=== PATIENT | male | born 1940 | race Caucasian/White ===

== ENCOUNTER 2018-10-24 18:57 | Inpatient (IN) ==
[2018-10-24] MEDS: Sod Chloride 0.9% Inj 1,000 ML IV.CONT SCH (23:50)
--- NOTE | 2018-10-24 23:53 | P.HPIM ---
History of Present Illness Service: [facility] Primary Care Physician: Jimmy Stevenson Chief Complaint: Abdominal pain History of Present Illness: 78 y/o male with no medical history presented to the ER with complaints of abdominal pain. He states the pain began after eating dinner in his epigastric area, 7/10, intermediate, with no radiation, but with associated nausea and dry heaving. He states the pain medication has helped and decreased his pain to 4/10. He denies any chest pain, sob, fever, or chills. Inpatient Certification Inpatient Certification: I certify that the inpatient services were ordered in accordance with Medicare regulations governing the order. This includes certification that hospital inpatient services are reasonable and necessary and in the case of services not specified as inpatient-only under 42 CFR 419.22(n), that they are appropriately provided as inpatient services in accordance to with the 2-midnight benchmark under 43 CFR 412.3(e) Review of Systems Review of Systems: all other systems reviewed are negative PMFSH History History Provided By: Patient Medical History Medical History Frequent UTI (Acute) History of colon cancer (Acute) Surgical History Surgical History History of bowel resection (Acute) History of right shoulder replacement (Acute) Hx of bladder repair surgery (Acute) Family History Family History Sister Breast cancer Throat cancer Social History Social History Substance History: No History of Abuse Smoking Status: Former smoker How Often Do You Have a Drink Containing Alcohol: Never Medications and Allergies Allergies Allergy/AdvReac Type Severity Reaction Status Date / Time No Known Allergies Allergy Verified 10/24/18 19:13 Home Medications Medication Instructions Recorded Confirmed Type trazodone 50 mg PO HS 10/24/18 10/24/18 History Physical Exam Vital signs: GENERAL: well nourished patient in no distress SKIN: Warm and dry. no lesions EYES: No scleral icterus. No injection or drainage. NECK: Supple, trachea midline. No JVD or lymphadenopathy. CARDIOVASCULAR: Regular rate and rhythm without murmurs, gallops, or rubs. RESPIRATORY: Breath sounds equal bilaterally. No accessory muscle use. GASTROINTESTINAL: Abdomen soft, epigastric tenderness, nondistended. NGT in place MUSCULOSKELETAL: No cyanosis, or edema. Caprini VTE Risk Assessment Caprini VTE Risk Assessment: No/Low Risk (score <= 1) Caprini Risk Assessment Model: Point Value = 1 Point Value = 2 Point Value = 3 Point Value = 5 Age 41-60 Minor surgery BMI > 25 kg/m2 Swollen legs Varicose veins or History of unexplained or recurrent spontaneous Oral contraceptives or hormone replacement Sepsis (< 1 month) Serious lung disease, including pneumonia (< 1 month) Abnormal pulmonary function Acute myocardial infarction Congestive heart failure (< 1 month) History of inflammatory bowel disease Medical patient at bed rest Age 61-74 Arthroscopic surgery Major open surgery (> 45 min) Laparoscopic surgery (> 45 min) Malignancy Confined to bed (> 72 hours) Immobilizing plaster cast Central venous access Age >= 75 History of VTE Family history of VTE Factor V Leiden Prothrombin [id number] Lupus anticoagulant Anticardiolipin antibodies Elevated serum homocysteine Heparin-induced thrombocytopenia Other congenital or acquired thrombophilia Stroke (< 1 month) Elective arthroplasty Hip, pelvis, or leg fracture Acute spinal cord injury (< 1 month) Prophylaxis Regimen: Total Risk Factor Score Risk Level Prophylaxis Regimen 0-1 Low Early ambulation 2 Moderate Order ONE of the following: *Sequential Compression Device (SCD) *Heparin 5000 units SQ BID 3-4 Higher Order ONE of the following medications: *Heparin 5000 units SQ TID *Enoxaparin/Lovenox 40 mg SQ daily (WT < 150 kg, CrCl > 30 mL/min) *Enoxaparin/Lovenox 30 mg SQ daily (WT < 150 kg, CrCl > 10-29 mL/min) *Enoxaparin/Lovenox 30 mg SQ BID (WT < 150 kg, CrCl > 30 mL/min) AND/OR *Sequential Compression Device (SCD) 5 or more Highest Order ONE of the following medications: *Heparin 5000 units SQ TID (Preferred with Epidurals) *Enoxaparin/Lovenox 40 mg SQ daily (WT < 150 kg, CrCl > 30 mL/min) *Enoxaparin/Lovenox 30 mg SQ daily (WT < 150 kg, CrCl > 10-29 mL/min) *Enoxaparin/Lovenox 30 mg SQ BID (WT < 150 kg, CrCl > 30 mL/min) AND *Sequential Compression Device (SCD) Assessment and Plan Plan 78 y/o male with no medical history presented to the ER with complaints of abdominal pain. Partial SBO with leukocytosis Abdominal CT reviewed and shows Postsurgical features in the retroperitoneum and left paracolic gutter with multiple loops of apparently adherent slightly dilated fluid-filled loops o fsmall bowel in the anterior left abdomen -IVF -Consult to General surgery -Pain management with IV morphine -IV antibiotics zosyn UTI UA shows +nitrate, large leukocyte esterase, moderate clumps -Cont IVF as above -Culture pending Acute kidney injury, creatine 1.4, unknown baseline, likely due to dehydration -Cont IVF -Trend creatine -avoid nephrotoxins DVT prophylaxis: SCDs
[2018-10-24] MEDS ORDERED: Acetaminophen 325 MG Tablet PO PRN (23:56)
[2018-10-25] MEDS: Morphine Sulfate Inj 2 MG/ML Vial IV.PUSH PRN ×5 (02:08→18:10)
[2018-10-25] MEDS: Piperacil/Tazo 3.375 GM Premix 3.375 GM/50 ML PIGGYBACK IV.SIG SCH ×4 (03:53→21:15)
[2018-10-25 07:07] LABS: Baso # (Auto) 0.1 th/mm3 (0.0-0.2); Baso % (Auto) 0.4 % (0.0-2.0); Eos % (Auto) 0.1 % (0.0-4.0); Hematocrit 41.8 % (39.0-51.0); Hemoglobin 13.9 gm/dL (13.0-17.0); Lymph # (Auto) 1.4 th/mm3 (1.0-4.8); Lymph % (Auto) 10.2 % (9.0-44.0); Mean Corpuscular HGB Conc 33.3 % (32.0-36.0); Mean Corpuscular Hemoglobin 28.1 pg (27.0-34.0); Mean Corpuscular Volume 84.5 fL (80.0-100.0); Mean Platelet Volume 9.1 fL (7.0-11.0); Mono # (Auto) 1.4 th/mm3 (0.0-0.9); Mono % (Auto) 10.4 % (0.0-8.0); Neut # (Auto) 10.8 th/mm3 (1.8-7.7); Neut % (Auto) 78.9 % (16.0-70.0); Platelet Count 225 th/mm3 (150-450); Red Blood Count 4.95 mil/mm3 (4.50-5.90); Red Cell Distribution Width 15.1 % (11.6-17.2); White Blood Count 13.7 th/mm3 (4.0-11.0)
[2018-10-25 07:31] LABS: Carbon Dioxide 25.3 meq/L (21.0-32.0); Potassium 4.5 meq/L (3.5-5.1)
[2018-10-25] MEDS: Sod Chloride 0.9% Inj 1,000 ML IV.CONT SCH (10:06)
--- NOTE | 2018-10-25 11:15 | P.CONGS ---
[facility] Gen Surgery Consult Note Consult date: 10/25/18 Reason for consult: abdominal pain (With nausea and minimal emesis) Narrative: The patient presented with relative acute onset of mid abdominal pain sharp and crampy in nature associated with nausea and minimal emesis. He had primarily dry heaves. He went to the emergency department for evaluation and was found to have on CT scan mildly dilated loops of small bowel in the left mid abdomen with decompressed distal loops of small bowel. He was admitted with potential partial small bowel obstruction and surgical consultation was requested. The patient has had prior abdominal surgeries with a colon resection for colon cancer in 1989. [place]. He is a partial year resident in [place], partial year resident in [place]. More recently he underwent a uro- lift procedure for bladder outlet obstruction due to benign prostatic hypertrophy. This is improved his urinary flow. His indicates that he has over the last 2-2-1/2 years had recurrent urinary tract infections. She indicates that they were just told that he has another urinary tract infection and would be put on antibiotics. He had a normal bowel movement yesterday. He has a nasogastric tube in place which is only about 100 cc of output. Review of Systems The patient denies fevers chills. He has no visual problems. He has some hearing deficit. He denies sinus or swallowing difficulties. He has no history of asthma bronchitis pneumonia or COPD. He denies history of chest pain heart attack or irregular heartbeat or heart murmur. He has no history of gastroesophageal reflux disease, chronic diarrhea or constipation. He denies blood in the urine or stool. He has been told he has a large kidney cyst, his indicates that is been present for years. He has benign prostatic hypertrophy and is undergone uro-lift procedure. He has had 2-2-1/2-year history of recurrent urinary tract infections. He denies arthritis. He denies history of phlebitis or blood clots or need for blood thinning medications. He has no history of strokes or seizures. He denies history of diabetes or thyroid gland problems. [facility] - History History Provided By: Patient (The patient denies tobacco or alcohol abuse. He denies HIV or hepatitis risk factors. 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 Family history significant for multiple cancers including breast and lung cancer. There is also a history of heart disease. There is a history of tobacco abuse disorder.) - Medical History Medical History: Medical History (Last Reviewed 10/25/18 @ 01:31 by Kaitlyn Sue RN) Frequent UTI History of colon cancer - Surgical History Surgical History: Surgical History (Last Reviewed 10/25/18 @ 01:31 by Kaitlyn Sue RN) History of bowel resection History of right shoulder replacement Hx of bladder repair surgery - Family History Family History: Family History (Last Reviewed 10/25/18 @ 01:02 by HERBERT Kelley) Sister Breast cancer Throat cancer - Tobacco History Second Hand Smoke Exposure: No Smoking Status: Never smoker - Alcohol History How Often Do You Have a Drink Containing Alcohol: Monthly or less - Substance Use History Substance History: No History of Abuse - Immunization History Tetanus Immunization: <5 Years Hx Influenza Vaccine This Season: Yes Medications and Allergies Active Medications: Active Medications Acetaminophen (Tylenol) 650 mg PO Q4H PRN PRN Reason: Temp > 100.4 Sodium Chloride (Ns Inj) 1,000 mls @ 100 mls/hr IV.CONT .Q10H [facility] Last Admin: 10/25/18 10:06 Dose: 100 mls/hr Piperacillin/Tazobactam/Dextrose (Zosyn 3.375 Gm Premix) 3.375 gm in 50 mls @ 100 mls/hr IV.SIG Q6H [facility] Last Admin: 10/25/18 10:07 Dose: 100 mls/hr Morphine Sulfate (Morphine Inj) 2 mg IV.PUSH Q3H PRN PRN Reason: PAIN SCALE 1 TO 10 Last Admin: 10/25/18 10:46 Dose: 2 mg Ondansetron HCl (Zofran Inj) 4 mg IV.PUSH Q6H PRN PRN Reason: NAUSEA OR VOMITING Last Admin: 10/25/18 07:24 Dose: 4 mg Sodium Chloride (Ns Flush) 2 ml IV.FLUSH PRN PRN PRN Reason: FLUSH AFTER USING IV ACCESS Sodium Chloride (Ns Flush) 2 ml IV.FLUSH BID [facility] Last Admin: 10/25/18 10:05 Dose: 2 ml Trazodone HCl (Desyrel) 50 mg PO HS [facility] Allergies Allergy/AdvReac Type Severity Reaction Status Date / Time No Known Allergies Allergy Verified 10/24/18 19:13 Home Medications Medication Instructions Recorded Confirmed Type trazodone 50 mg PO HS 10/24/18 10/24/18 History Exam Vital signs: Vital Signs 10/24/18 23:22 10/25/18 02:09 10/25/18 05:03 Temperature 97.3 F L Pulse Rate 84 Respiratory Rate 17 17 18 Blood Pressure 145/70 H Pulse Oximetry 95 10/25/18 07:25 10/25/18 08:00 Temperature 98.7 F Pulse Rate 77 Respiratory Rate 18 17 Blood Pressure 136/65 Pulse Oximetry 98 Intake & Output 10/24/18 10/25/18 10/25/18 18:59 06:59 18:59 Intake Total 50 / 50 1000 / 1000 Output Total 10 Balance 50 / 50 990 / 990 Intake: IV 50 / 50 1000 / 1000 NS Inj 1,000 ML @ 100 mls/hr IV 1000 / 1000 .CONT .Q10H [facility] Rx#:[id number] Zosyn 3.375 GM Premix 3.375 gm 50 / 50 In 50 ml @ 100 mls/hr IV.SIG Q6H [facility] Rx#:[id number] Output: Gastric Drainage Left Nare Nasogastric Tube Other: Date of Last Bowel Movement 10/24/18 10/24/18 Narrative: Patient is awake alert and oriented. He is accompanied by his at his bedside. He is pleasant and cooperative with the exam. HEENT shows a normocephalic atraumatic head. His pupils are 2 round and sluggishly reactive to light. There is some scarring over the right eye. There is no scleral icterus. He has a nasogastric tube in the left nares again not draining much. His oropharynx is clear without mucosal lesions. He has good dentition. His neck is supple without adenopathy. He has a midline trachea. He has no jugular venous distention or carotid bruits. He has no palpable thyromegaly or cervical lymphadenopathy. His lung sounds are clear to auscultation anteriorly bilaterally. His heart sounds are regular without obvious murmur rub or gallop. His abdomen is soft and nondistended and nontender. He has active bowel sounds. There is a healed midline incision starting about 4-5 cm above the umbilicus and down the inferior midline. There is no obvious hernia. There is no rebound or guarding. He has no obvious hernia. His extremities are nonedematous. He has equal bilateral radial and dorsalis pedis pulses. Neurologically he is awake alert oriented he has equal bilateral precipitation equipment tender strength and no gross motor or sensory deficit. Is important to note the patient additionally has had surgery to his right shoulder with right shoulder placement and there is a well-healed scar in the anterior right shoulder. He is also had a uro-lift procedure for bladder outlet obstruction due to benign prostatic hypertrophy. He also had a traumatic injury to his scrotum and testicles following a ladder fall in 2017 where it sounds like he had decompression of an infected hematoma. He also apparently had a right inguinal hernia repair although I cannot see a scar in the right groin. Results - Labs 10/25/18 06:45 10/25/18 06:45 Laboratory Results - last 24 hr 10/25/18 10/25/18 06:45 06:45 WBC 13.7 H RBC 4.95 Hgb 13.9 Hct 41.8 MCV 84.5 MCH 28.1 MCHC 33.3 RDW 15.1 Plt Count 225 MPV 9.1 Neut % (Auto) 78.9 H Lymph % (Auto) 10.2 [place] % (Auto) 10.4 H Eos % (Auto) 0.1 Baso % (Auto) 0.4 Neut # (Auto) 10.8 H Lymph # (Auto) 1.4 [place] # (Auto) 1.4 H Eos # (Auto) 0.0 Baso # (Auto) 0.1 WBC Differential . Differential Comment Auto diff final Sodium 145 Potassium 4.5 Chloride 112 H Carbon Dioxide 25.3 Anion Gap 8 BUN 20 H Creatinine 1.31 H Estimated GFR 53 L Random Glucose 116 H Calcium 9.0 D - Imaging CT scan - abdomen: report reviewed, image reviewed CT scan - pelvis: report reviewed, image reviewed Assessment and Plan - Assessment (1) Partial obstruction of small intestine Code(s): K56.600 - Partial intestinal obstruction, unspecified as to cause Status: Acute (2) Urinary tract infection Code(s): N39.0 - Urinary tract infection, site not specified Status: Acute - Plan I have recommended upper GI small bowel follow-through to evaluate for narrowing kinking or small bowel obstruction. The patient may have a focal ileus related to urinary tract infection. Antibiotic therapy should be ordered by the primary team. We will follow-up after contrast study. I discussed with the patient and his surgical intervention for bowel obstruction if his symptoms do not resolve or the contrast study points to a focal area that would benefit from either laparoscopic or open adhesio lysis, possible small bowel resection. Expressed understanding and were grateful for my explanation and evaluation. Discussed Condition With: Patient and
--- NOTE | 2018-10-25 11:25 | P.PN ---
Subjective Interval history: Follow-up visit for partial small bowel obstruction and UTI. Is seen and examined sitting up in bed with at bedside. Minimal output from NG tube reported by nurse, patient denies any nausea or vomiting, ongoing abdominal pain , denies dysuria or hematuria. Denies any fevers, chills, cough, shortness of breath or chest pain. Physical Exam Vital signs: Vital Signs 10/24/18 23:22 10/25/18 02:09 10/25/18 05:03 Temperature 97.3 F L Pulse Rate 84 Respiratory Rate 17 17 18 Blood Pressure 145/70 H Pulse Oximetry 95 10/25/18 07:25 10/25/18 08:00 Temperature 98.7 F Pulse Rate 77 Respiratory Rate 18 17 Blood Pressure 136/65 Pulse Oximetry 98 Intake & Output 10/24/18 10/25/18 10/25/18 18:59 06:59 18:59 Intake Total 50 / 50 1000 / 1000 Output Total 10 / 10 Balance 50 / 50 990 / 990 Intake: IV 50 / 50 1000 / 1000 NS Inj 1,000 ML @ 100 mls/hr IV 1000 / 1000 .CONT .Q10H [facility] Rx#:[id number] Zosyn 3.375 GM Premix 3.375 gm 50 / 50 In 50 ml @ 100 mls/hr IV.SIG Q6H [facility] Rx#:[id number] Output: Gastric Drainage Left Nare Nasogastric Tube Other: Date of Last Bowel Movement 10/24/18 10/24/18 Narrative: GENERAL: Well-nourished, well-developed male sitting up in bed in no acute distress. SKIN: Warm and dry. Right shoulder surgical scar, abdominal surgical scar. HEAD: Atraumatic. Normocephalic. EYES: Pupils equal and round. No scleral icterus. No injection or drainage. ENT: Left nare NG tube. Mucous membranes pink and moist. NECK: Trachea midline. CARDIOVASCULAR: Regular rate and rhythm. RESPIRATORY: No accessory muscle use. Clear to auscultation. Breath sounds equal bilaterally. GASTROINTESTINAL: Abdomen soft, mild diffuse tenderness, nondistended. + Bowel sounds MUSCULOSKELETAL: Extremities without clubbing, cyanosis, or edema. No obvious deformities. NEUROLOGICAL: Awake, alert, oriented x3. No obvious cranial nerve deficits. Motor grossly within normal limits. Normal speech. PSYCHIATRIC: Appropriate mood and affect; insight and judgment normal. Results - Labs CBC & Chem 7: 10/25/18 06:45 10/25/18 06:45 Laboratory Results - last 24 hr 10/25/18 10/25/18 06:45 06:45 WBC 13.7 H RBC 4.95 Hgb 13.9 Hct 41.8 MCV 84.5 MCH 28.1 MCHC 33.3 RDW 15.1 Plt Count 225 MPV 9.1 Neut % (Auto) 78.9 H Lymph % (Auto) 10.2 [place] % (Auto) 10.4 H Eos % (Auto) 0.1 Baso % (Auto) 0.4 Neut # (Auto) 10.8 H Lymph # (Auto) 1.4 [place] # (Auto) 1.4 H Eos # (Auto) 0.0 Baso # (Auto) 0.1 WBC Differential . Differential Comment Auto diff final Sodium 145 Potassium 4.5 Chloride 112 H Carbon Dioxide 25.3 Anion Gap 8 BUN 20 H Creatinine 1.31 H Estimated GFR 53 L Random Glucose 116 H Calcium 9.0 D Assessment and Plan - Plan 78 y/o male with no medical history presented to the ER with complaints of abdominal pain. Partial SBO with leukocytosis Abdominal CT reviewed and shows Postsurgical features in the retroperitoneum and left paracolic gutter with multiple loops of apparently adherent slightly dilated fluid-filled loops o fsmall bowel in the anterior left abdomen -Continue n.p.o., NG tube to suction, IVF for hydration -General surgery consult, appreciate recommendations. Plans for upper GI with small bowel series. -Pain management with IV morphine -IV antibiotics zosyn UTI UA shows +nitrate, large leukocyte esterase, moderate clumps -Urine culture collected in deltoid in the ED still pending. Continue IV Zosyn for the moment. Acute kidney injury, creatine 1.4, unknown baseline, likely due to dehydration -Slight improvement in creatinine, continue IV fluids, continue to monitor renal function. -avoid nephrotoxins DVT prophylaxis: SCDs Discussed Condition With: Discussed with patient, , RN.
[2018-10-25] MEDS: traZODone 50 MG Tablet PO SCH (20:57)
--- NOTE | 2018-10-25 21:26 | FL ---
EXAM DATE: 10/25/2018 5:08 PM EST AGE/SEX: 78 years / Male INDICATIONS: Possible obstruction. CLINICAL DATA: This is the patient's subsequent encounter. Patient reports that signs and symptoms h ave been present for 2 days and indicates a pain score of 0/10. MEDICAL/SURGICAL HISTORY: None. . Bowel resection, prostate surgery, right shoulder replacement . COMPARISON: [facility], CT ABDOMEN & PELVIS W/O CONTRAST, 10/24/2018. . FLUORO TIME: 0.8 minutes. IMAGE COUNT: 9 RADIATION DOSE: 2221.8 DAP FINDINGS: Gastrografin upper GI and small bowel follow-through were performed through the indwelling nasogastri c tube. Initial branch service associate film demonstrates a nonspecific bowel gas pattern. Surgical clips are noted thr oughout the pelvis and left abdomen. Degenerative changes and scoliosis of the thoracolumbar spine ar e noted Gastrografin passes freely through the stomach into the small intestine in appropriate period of time. No gastric outlet obstruction is noted. The jejunal loops are very minimally prominent but no definite mechanical obstruction is confirmed. There is opacification of the entire small intestine at 4 hours. At 8 hours, contrast opacifies the colon and has completely transited the small intestin e. The findings are suggestive of mild small bowel ileus in the region of the jejunum or resolved par tial small bowel obstruction. CONCLUSION: 1. Very minimally prominent jejunal loops without definite mechanical obstruction confirmed. The fin dings are suggestive of mild small bowel ileus in the region of the jejunum or resolved partial small bowel obstruction. 2. Degenerative changes and scoliosis of the thoracolumbar spine. Electronically signed by: Daniel Corbin MD Board Certified Radiologist 10/25/2018 9:24 PM EST
[2018-10-26] MEDS: Sod Chloride 0.9% Inj 1,000 ML IV.CONT SCH ×3 (00:05→15:12)
[2018-10-26] MEDS: Piperacil/Tazo 3.375 GM Premix 3.375 GM/50 ML PIGGYBACK IV.SIG SCH ×4 (04:11→21:26)
[2018-10-26 09:38] LABS: Baso # (Auto) 0.1 th/mm3 (0.0-0.2); Baso % (Auto) 0.5 % (0.0-2.0); Eos % (Auto) 0.4 % (0.0-4.0); Hematocrit 39.5 % (39.0-51.0); Hemoglobin 13.3 gm/dL (13.0-17.0); Lymph # (Auto) 1.6 th/mm3 (1.0-4.8); Lymph % (Auto) 12.7 % (9.0-44.0); Mean Corpuscular HGB Conc 33.6 % (32.0-36.0); Mean Corpuscular Hemoglobin 28.5 pg (27.0-34.0); Mean Platelet Volume 9.1 fL (7.0-11.0); Mono % (Auto) 7.9 % (0.0-8.0); Neut # (Auto) 10.1 th/mm3 (1.8-7.7); Neut % (Auto) 78.5 % (16.0-70.0); Platelet Count 191 th/mm3 (150-450); Red Blood Count 4.65 mil/mm3 (4.50-5.90); Red Cell Distribution Width 15.3 % (11.6-17.2); White Blood Count 12.8 th/mm3 (4.0-11.0)
[2018-10-26 10:07] LABS: Calcium 8.7 mg/dL (8.5-10.1); Carbon Dioxide 25.2 meq/L (21.0-32.0); Potassium 4.2 meq/L (3.5-5.1)
--- NOTE | 2018-10-26 10:48 | P.PN ---
Subjective Interval history: Follow-up visit for small bowel obstruction and UTI. Patient is seen and examined sitting up in bed, comfortable in no acute distress with at bedside. He reports that he is feeling a whole lot better, no further nausea, vomiting, abdominal pain or discomfort. Patient states that he is feeling thirsty today. He also states that he had 2 bowel movements today. Denies any fevers, chills cough, shortness of breath, chest pain. Denies any dysuria or hematuria. Physical Exam Vital signs: Vital Signs 10/25/18 12:00 10/25/18 16:00 10/25/18 20:20 Temperature 98.2 F 97.8 F 98.3 F Pulse Rate 79 75 75 Respiratory Rate 17 16 19 Blood Pressure 137/65 134/61 141/65 H Pulse Oximetry 97 97 95 10/26/18 01:00 10/26/18 01:05 10/26/18 04:35 Temperature 97.8 F 97.3 F L Pulse Rate 78 84 Respiratory Rate 17 19 18 Blood Pressure 125/67 133/63 Pulse Oximetry 95 94 L 10/26/18 08:00 Temperature 98.2 F Pulse Rate 76 Respiratory Rate 16 Blood Pressure 130/77 Pulse Oximetry 98 Intake & Output 10/25/18 10/26/18 10/26/18 18:59 06:59 18:59 Intake Total 1100 / 1100 1100 / 1100 50 / 50 Output Total 350 / 350 Balance 750 / 750 1100 / 1100 50 / 50 Intake: IV 1100 / 1100 1100 / 1100 50 / 50 NS Inj 1,000 ML @ 100 mls/hr IV 1000 / 1000 1000 / 1000 .CONT .Q10H [facility] Rx#:[id number] Zosyn 3.375 GM Premix 3.375 gm 100 / 100 100 / 100 50 / 50 In 50 ml @ 100 mls/hr IV.SIG Q6H [facility] Rx#:[id number] Oral 0 / 0 Output: Gastric Drainage 350 / 350 Left Nare Nasogastric Tube 350 / 350 Other: # Voids 2 Date of Last Bowel Movement 10/24/18 10/26/18 10/26/18 # Bowel Movements 1 Narrative: GENERAL: Well-nourished, well-developed male sitting up in bed in no acute distress. SKIN: Warm and dry. HEAD: Atraumatic. Normocephalic. EYES: Pupils equal and round. No scleral icterus. No injection or drainage. ENT: Left nare NG tube. Mucous membranes pink and moist. NECK: Trachea midline. CARDIOVASCULAR: Regular rate and rhythm. RESPIRATORY: No accessory muscle use. Clear to auscultation. Breath sounds equal bilaterally. GASTROINTESTINAL: Abdomen soft, nondistended, nontender. + Bowel sounds MUSCULOSKELETAL: Extremities without clubbing, cyanosis, or edema. No obvious deformities. NEUROLOGICAL: Awake, alert, oriented x3. No obvious cranial nerve deficits. Motor grossly within normal limits. Normal speech. PSYCHIATRIC: Appropriate mood and affect; insight and judgment normal. Results - Labs CBC & Chem 7: 10/26/18 09:12 10/26/18 09:12 Laboratory Results - last 24 hr 10/26/18 10/26/18 09:12 09:12 WBC 12.8 H RBC 4.65 Hgb 13.3 Hct 39.5 MCV 85.0 MCH 28.5 MCHC 33.6 RDW 15.3 Plt Count 191 MPV 9.1 Neut % (Auto) 78.5 H Lymph % (Auto) 12.7 [place] % (Auto) 7.9 Eos % (Auto) 0.4 Baso % (Auto) 0.5 Neut # (Auto) 10.1 H Lymph # (Auto) 1.6 [place] # (Auto) 1.0 H Eos # (Auto) 0.0 Baso # (Auto) 0.1 WBC Differential . Differential Comment Auto diff final Sodium 145 Potassium 4.2 Chloride 112 H Carbon Dioxide 25.2 Anion Gap 8 BUN 21 H Creatinine 1.39 H Estimated GFR 49 L Random Glucose 115 H Calcium 8.7 - Imaging Impressions Upper GI and Small Bowel X-Ray 10/25/18 00:00 CONCLUSION: 1. Very minimally prominent jejunal loops without definite mechanical obstruction confirmed. The findings are suggestive of mild small bowel ileus in the region of the jejunum or resolved partial small bowel obstruction. 2. Degenerative changes and scoliosis of the thoracolumbar spine. Assessment and Plan - Plan 78 y/o male with no medical history presented to the ER with complaints of abdominal pain. Partial SBO with leukocytosis Abdominal CT reviewed and shows Postsurgical features in the retroperitoneum and left paracolic gutter with multiple loops of apparently adherent slightly dilated fluid-filled loops o fsmall bowel in the anterior left abdomen -General surgery consult, appreciate recommendations. S/P upper GI series with very minimally prominent jejunal loops without definite mechanical obstruction confirmed. Findings suggestive of small bowel ileus in the region of the jejunum or resolved partial SBO. -No further nausea, vomiting, NG tube removed, clear liquid diet, advance as tolerated. -Pain management with IV morphine -IV antibiotics zosyn UTI UA shows +nitrate, large leukocyte esterase, moderate clumps -Urine culture growing gram-negative rods, sensitivity pending. Continue IV Zosyn for the moment. Acute kidney injury, creatine 1.4, unknown baseline, likely due to dehydration -Creatinine stable 1.39, continue IV hydration. -avoid nephrotoxins DVT prophylaxis: SCDs Discussed Condition With: Patient, and botanical technical officer Planning: Pending urine culture sensitivity, likely DC tomorrow on oral antibiotics.
--- NOTE | 2018-10-26 13:13 | P.PNGS ---
Subjective Patient reports: no new complaints, feels better, bowel movement Physical Exam Vital signs: Vital Signs 10/25/18 16:00 10/25/18 20:20 10/26/18 01:00 Temperature 97.8 F 98.3 F Pulse Rate 75 75 Respiratory Rate 16 19 17 Blood Pressure 134/61 141/65 H Pulse Oximetry 97 95 10/26/18 01:05 10/26/18 04:35 10/26/18 08:00 Temperature 97.8 F 97.3 F L 98.2 F Pulse Rate 78 84 76 Respiratory Rate 19 18 16 Blood Pressure 125/67 133/63 130/77 Pulse Oximetry 95 94 L 98 10/26/18 12:00 Temperature 98.3 F Pulse Rate 69 Respiratory Rate 16 Blood Pressure 144/78 H Pulse Oximetry 95 Intake & Output 10/25/18 10/26/18 10/26/18 18:59 06:59 18:59 Intake Total 1100 / 1100 1100 / 1100 1050 / 1050 Output Total 350 / 350 Balance 750 / 750 1100 / 1100 1050 / 1050 Intake: IV 1100 / 1100 1100 / 1100 1050 / 1050 NS Inj 1,000 ML @ 100 mls/hr IV 1000 / 1000 1000 / 1000 1000 / 1000 .CONT .Q10H [facility] Rx#:[id number] Zosyn 3.375 GM Premix 3.375 gm 100 / 100 100 / 100 50 / 50 In 50 ml @ 100 mls/hr IV.SIG Q6H [facility] Rx#:[id number] Oral 0 / 0 Output: Gastric Drainage 350 / 350 Left Nare Nasogastric Tube 350 / 350 Other: # Voids 2 Date of Last Bowel Movement 10/24/18 10/26/18 10/26/18 # Bowel Movements 1 - Routine Abdominal Exam Present: soft (non distended, minimal tenderness, healed scars) Results - Labs 10/26/18 09:12 10/26/18 09:12 Laboratory Results - last 24 hr 10/26/18 10/26/18 09:12 09:12 WBC 12.8 H RBC 4.65 Hgb 13.3 Hct 39.5 MCV 85.0 MCH 28.5 MCHC 33.6 RDW 15.3 Plt Count 191 MPV 9.1 Neut % (Auto) 78.5 H Lymph % (Auto) 12.7 [place] % (Auto) 7.9 Eos % (Auto) 0.4 Baso % (Auto) 0.5 Neut # (Auto) 10.1 H Lymph # (Auto) 1.6 [place] # (Auto) 1.0 H Eos # (Auto) 0.0 Baso # (Auto) 0.1 WBC Differential . Differential Comment Auto diff final Sodium 145 Potassium 4.2 Chloride 112 H Carbon Dioxide 25.2 Anion Gap 8 BUN 21 H Creatinine 1.39 H Estimated GFR 49 L Random Glucose 115 H Calcium 8.7 - Imaging Imaging: ITS Impressions Upper GI and Small Bowel X-Ray 10/25/18 00:00 CONCLUSION: 1. Very minimally prominent jejunal loops without definite mechanical obstruction confirmed. The findings are suggestive of mild small bowel ileus in the region of the jejunum or resolved partial small bowel obstruction. 2. Degenerative changes and scoliosis of the thoracolumbar spine. Assessment and Plan - Assessment (1) Partial obstruction of small intestine Code(s): K56.600 - Partial intestinal obstruction, unspecified as to cause Status: Acute (2) Urinary tract infection Code(s): N39.0 - Urinary tract infection, site not specified Status: Acute - Plan partial sbo SBFT with passage of contrast PLAN NG tube removed, ok for diet slowly advance oob non operative mgnt at this time continue abdominal exams
[2018-10-26] MEDS: traZODone 50 MG Tablet PO SCH (21:26)
[2018-10-27] MEDS: Sod Chloride 0.9% Inj 1,000 ML IV.CONT SCH (02:37)
[2018-10-27] MEDS: Piperacil/Tazo 3.375 GM Premix 3.375 GM/50 ML PIGGYBACK IV.SIG SCH ×2 (04:21→10:14)
[2018-10-27 06:08] LABS: Calcium 8.3 mg/dL (8.5-10.1); Carbon Dioxide 23.7 meq/L (21.0-32.0); Potassium 3.6 meq/L (3.5-5.1)
--- NOTE | 2018-10-27 10:50 | P.PNGS ---
Subjective Interval history: Up to chair Ate breakfast; +BM Wants to go home Physical Exam Vital signs: Vital Signs 10/26/18 12:00 10/26/18 16:00 10/26/18 19:40 Temperature 98.3 F 98.7 F 97.2 F L Pulse Rate 69 75 66 Respiratory Rate 16 16 19 Blood Pressure 144/78 H 149/87 H 115/68 Pulse Oximetry 95 98 96 10/26/18 23:35 10/27/18 03:47 10/27/18 08:00 Temperature 97.6 F 97.5 F L 97.9 F Pulse Rate 63 78 77 Respiratory Rate 18 16 20 Blood Pressure 98/52 L 113/59 L 120/58 L Pulse Oximetry 95 95 96 Intake & Output 10/26/18 10/27/18 10/27/18 18:59 06:59 18:59 Intake Total 1820 / 1820 280 / 280 Output Total 375 / 375 Balance 1820 / 1820 -95 / -95 Weight 74.2 kg Intake: IV 1100 / 1100 100 / 100 NS Inj 1,000 ML @ 100 mls/hr IV 1000 / 1000 .CONT .Q10H [facility] Rx#:[id number] Zosyn 3.375 GM Premix 3.375 gm 100 / 100 100 / 100 In 50 ml @ 100 mls/hr IV.SIG Q6H [facility] Rx#:[id number] Oral 720 / 720 180 / 180 Output: Urine 375 / 375 Other: # Voids 4 Date of Last Bowel Movement 10/26/18 10/26/18 10/26/18 # Bowel Movements 2 0 Narrative: Alert and awake Abd: Soft Results - Labs 10/26/18 09:12 10/27/18 05:18 Laboratory Results - last 24 hr 10/27/18 05:18 Sodium 145 Potassium 3.6 Chloride 112 H Carbon Dioxide 23.7 Anion Gap 9 BUN 20 H Creatinine 1.17 Estimated GFR 60 L Random Glucose 95 Calcium 8.3 L - Imaging Imaging: ITS Impressions Upper GI and Small Bowel X-Ray 10/25/18 00:00 CONCLUSION: 1. Very minimally prominent jejunal loops without definite mechanical obstruction confirmed. The findings are suggestive of mild small bowel ileus in the region of the jejunum or resolved partial small bowel obstruction. 2. Degenerative changes and scoliosis of the thoracolumbar spine. Assessment and Plan - Assessment (1) Partial obstruction of small intestine Code(s): K56.600 - Partial intestinal obstruction, unspecified as to cause Status: Acute (2) Urinary tract infection Code(s): N39.0 - Urinary tract infection, site not specified Status: Acute - Plan 78 year old male with SBO; resolved -Tolerating regular diet -+BM -GS clear for DC - Attending Attestation I certify and attest that I personally examined the patient. [employer]EVELOP[employer] SPECIALIST documented our visit. [employer] REDEVELOP[employer] SPECIALIST entered orders under my supervision. Care plan reviewed with patient and nurse. MITZI OSEI MD FACS
--- NOTE | 2018-10-27 12:02 | P.DS ---
Date of admission: 10/24/18 23:36 Primary care physician: Jimmy Stevenson Attending physician on discharge: Daniel Forbes Anticipated date of discharge: 10/27/18 Brief History from admission: 78 y/o male with no medical history presented to the ER with complaints of abdominal pain. He states the pain began after eating dinner in his epigastric area, 7/10, intermediate, with no radiation, but with associated nausea and dry heaving. He states the pain medication has helped and decreased his pain to 4/ 10. He denies any chest pain, sob, fever, or chills. DS: Medications - Discharge Medications Prescriptions: nitrofurantoin monohyd/m-cryst [Macrobid] 100 mg PO Q12H #10 cap DS: Summary Hospital Course: 78-year-old male with past medical history significant for colon cancer, BPH, frequent urinary tract infections and recent ureteral lift for bladder outlet obstruction who presented to the emergency department on 10/24 with complaints of abdominal pain. Lab work completed in the ED showed mild leukocytosis with white count 13.7 and acute kidney injury with creatinine 1.31. CT of the abdomen revealed postsurgical features in the retroperitoneum and left para colonic gutter with multiple loops of apparently adherent slightly dilated fluid -filled loops of small bowel in the anterior left abdomen. General surgery was consulted for further evaluation during his hospitalization. Underwent upper GI series which showed very minimally prominent jejunal loops without definite mechanical obstruction confirmed. Findings suggestive of small bowel ileus in the region of the jejunum or resolved partial SBO. Patient's nausea, vomiting and abdominal pain resolved, he moved his bowels without any issues and tolerated a regular diet. His renal function also improved with a creatinine of 1.17 on discharge. Urine culture was positive for E. coli ESBL positive. Curbside discussion with infectious disease, straight catheterization once again reflex to culture. Patient remained completely asymptomatic with no dysuria or fevers. Will treat with 5 days course of nitrofurantoin. Discussed with patient that if he should develop fevers, chills, suprapubic pain or dysuria here is to follow-up with his urologist and may require testing once again and treatment of urinary tract infection if indicated. He is seen and examined sitting up in chair in no acute distress reports he is tolerating his diet denies any further abdominal pain. Moving his bowels without any diarrhea or constipation, denies any nausea, vomiting, fevers, chills, dysuria. Would like to go home today. - Time Spent with Patient Total time spent providing and/or coordinating discharge services: Less than 30 minutes - Quality: VTE Deep Vein Thrombosis/Pulmonary Embolism Present on Admission: No Exam Vital signs: Vital Signs 10/26/18 12:00 10/26/18 16:00 10/26/18 19:40 Temperature 98.3 F 98.7 F 97.2 F L Pulse Rate 69 75 66 Respiratory Rate 16 16 19 Blood Pressure 144/78 H 149/87 H 115/68 Pulse Oximetry 95 98 96 10/26/18 23:35 10/27/18 03:47 10/27/18 08:00 Temperature 97.6 F 97.5 F L 97.9 F Pulse Rate 63 78 77 Respiratory Rate 18 16 20 Blood Pressure 98/52 L 113/59 L 120/58 L Pulse Oximetry 95 95 96 Intake & Output 10/26/18 10/27/18 10/27/18 18:59 06:59 18:59 Intake Total 1820 / 1820 280 / 280 Output Total 375 / 375 Balance 1820 / 1820 -95 / -95 Weight 74.2 kg Intake: IV 1100 / 1100 100 / 100 NS Inj 1,000 ML @ 100 mls/hr IV 1000 / 1000 .CONT .Q10H [facility] Rx#:[id number] Zosyn 3.375 GM Premix 3.375 gm 100 / 100 100 / 100 In 50 ml @ 100 mls/hr IV.SIG Q6H [facility] Rx#:[id number] Oral 720 / 720 180 / 180 Output: Urine 375 / 375 Other: # Voids 4 Date of Last Bowel Movement 10/26/18 10/26/18 10/26/18 # Bowel Movements 2 0 Results Procedures completed during hospitalization: None Labs on day of discharge: Labs from last 24 hours 10/27/18 05:18 Sodium 145 Potassium 3.6 Chloride 112 H Carbon Dioxide 23.7 Anion Gap 9 BUN 20 H Creatinine 1.17 Estimated GFR 60 L Random Glucose 95 Calcium 8.3 L - Impressions ITS Impressions Upper GI and Small Bowel X-Ray 10/25/18 00:00 CONCLUSION: 1. Very minimally prominent jejunal loops without definite mechanical obstruction confirmed. The findings are suggestive of mild small bowel ileus in the region of the jejunum or resolved partial small bowel obstruction. 2. Degenerative changes and scoliosis of the thoracolumbar spine. Discharge Plan - Discharge Disposition Patient Disposition: 01 Discharge Home - Discharge Condition Condition: Good - Discharge Order Discharge Orders: Discharge Order (Routine); Ordered 10/27/18 Ordered By: Wenceslao Shukla - Physicians Team Attending Provider: Daniel Forbes Other Providers: Florian Nails MD ; [employer] - Rxs /Orders / Referrals /Forms Prescriptions: New nitrofurantoin monohyd/m-cryst [Macrobid] 100 mg Capsule 100 mg PO Q12H Qty: 10 RF: 0 Continue trazodone 50 mg Tablet 50 mg PO HS Referrals: Jimmy Stevenson [Other] - See Instructions
[2018-10-27 12:12] VITALS: BP 148/69; PULSE 63; RESP 18; TEMP 97.3; O2SAT 94
[2018-10-27 12:12] LABS: Bacteria,Urine Rare /hpf; Bilirubin,Urine Negative (Negative); Clarity,Urine Hazy (Clear); Color,Urine Yellow (Yellw/Straw); Glucose,Urine (UA) Negative (Negative); Leukocyte Esterase,Urine Large (Negative); Nitrite,Urine Negative (Negative); Specific Gravity,Urine 1.015 (1.002-1.035); Squamous Epithelial Cell,Urine 1 /hpf (0-5)
== END 2018-10-27 15:18 | disposition home or self-care (01) ==
LOC: NEDDLT 18:57 → N06 23:36
PROVIDERS: ADMIT Internal Medicine; ATTEND Internal Medicine